=== PATIENT | female | born 1965 | race Caucasian/White ===

== ENCOUNTER 2016-09-25 06:32 | Day surgery (SDC) | payer OTHER ==
[~2016-09-25 06:32] MED LIST: CEFAZOLIN 1 GM/D5W RTU 1 GM/50 ML RTUPB IV PRN
[2016-09-25] MEDS ORDERED: FENTANYL CITRATE INJ/PF 100 MCG/2 ML AMPUL ONE (06:58)
[2016-09-25] MEDS ORDERED: MIDAZOLAM 2 MG/2 ML INJ ONE (06:58)
[2016-09-25] MEDS ORDERED: LIDOCAINE 2% INJ-PF (20 MG/ML) 10 ML AMPUL ONE (06:59)
[2016-09-25] MEDS ORDERED: PROPOFOL INJ 200 MG/20 ML VIAL IV ONE ×2 (06:59→08:32)
[2016-09-25] MEDS ORDERED: POLYMYXIN B SULFATE INJ 500000 UNIT VIAL ONE (07:15)
[2016-09-25] MEDS ORDERED: BACITRACIN INJ 50,000 UNIT VIAL ONE (07:15)
[2016-09-25] MEDS ORDERED: NORMAL SALINE INJ/PF 0.9% 10 ML SDV ONE (07:15)
[2016-09-25] MEDS: BUPIVACAINE HCL 0.5 % INJ/PF 30 ML SDV ONE ×2 (07:48→08:19)
[2016-09-25] MEDS: LIDOCAINE 2% INJ (20 MG/ML) 20 ML MDV ONE ×2 (07:48→08:19)
[2016-09-25] MEDS ORDERED: BUPIVACAINE INJ/PF LIPOSOME/PF 266 MG/20 ML SDV INJ PRN (08:00)
[2016-09-25] MEDS ORDERED: KETAMINE HCL INJ 500 MG/10 ML VIAL ONE (08:09)
--- NOTE | 2016-09-25 10:11 | SURGICARE DISCHARGE SUMMARY E ---
[facility] Discharge Summary NAME: MARC AGUILA AGE: 51Y ADMITTED: 09/25/2016 DISCHARGED: 09/25/2016 SURGICAL PROCEDURE: Correction of bunion via Compa osteotomy with internal screw fixation, left foot. POSTOPERATIVE DIAGNOSIS: Hallux abductovalgus, left foot. SURGEON: Yanet Mckenna DPM NEUROLOGY PHYSICIAN ASSISTANT: Curtis Soto DPM HOSPITAL COURSE: The patient was admitted to [facility] with chief complaint of a painful bunion on her left foot. She stated that she has had it for a number of years and the pain was worsening whether she was in or out of shoes. She desired to have this problem surgically corrected. She underwent the above surgical procedure without any complications and was transferred to the recovery room. She was discharged with a surgical shoe, an ice pack, postoperative instructions, and postoperative prescriptions for Dilaudid 8 mg #48, Phenergan 25 mg #24, and cephalexin 500 mg #4. She was given a follow-up appointment in the doctor's office in 1 week, and the patient was discharged from [facility]. DICTATING PHYSICIAN: YANET MCKENNA D.P.M. [id number] PHY#: [id number] ID: [id number] JOB#: [id number] ACCT: [id number] cc:YANET MCKENNA DPM >
--- NOTE | 2016-09-25 10:29 | RADIOLOGY REPORT (SQ) ---
EXAM DESCRIPTION: FOOT LEFT 2 VIEWS; NO CHG FLUORO COMPLETED DATE/TIME: 09/25/2016 9:55 am REASON FOR STUDY: JENNA BUNIONECTOMY M20.12 HALLUX VALGUS (ACQUIRED), LEFT FOOT COMPARISON: None. FLUOROSCOPY TIME: 10 seconds 4 digital fluoroscopic images saved to PACS. TECHNIQUE: Intra-operative images acquired during surgical procedure to evaluate progress. NUMBER OF IMAGES: 4 digital fluoroscopic images LIMITATIONS: None. FINDINGS: Intra procedural imaging and fluoro during left foot bunion corrective surgery with osteot aleksander and screw placement. Please see the operative report for further details IMPRESSION: Intra procedural imaging and fluoro COMMENT: Quality ID [id number]: Final reports for procedures using fluoroscopy that document radiation exp osure indices, or exposure time and number of fluorographic images (if radiation exposure indices are not available) Please consult full operative report of the attending physician for description of the procedure. TECHNICAL DOCUMENTATION: JOB ID: [id number] [employer]- All Rights Reserved
--- NOTE | 2016-09-25 10:39 | SURGICARE OPERATIVE REPORT E ---
[facility] Operative Report NAME: MARC AGUILA AGE: 51Y DATE OF SURGERY: 09/25/2016 ROOM: PREOPERATIVE DIAGNOSIS: Hallux abductovalgus, left foot. POSTOPERATIVE DIAGNOSIS: Hallux abductovalgus, left foot. SURGICAL PROCEDURE: Correction of bunion via osteotomy with internal screw fixation, left foot. SURGEON: CARLOS ALBERTO KNOTT DPM [employer] SUPERVISOR: TERESA BARNETT DPM DESCRIPTION OF PROCEDURE: Following induction of IV regional local anesthesia, the left foot and leg were prepped and draped in the usual sterile manner. A pneumatic tourniquet was placed around the left ankle and inflated to 250 mmHg after exsanguination of the limb via Esmarch bandage. The following surgical procedure was then performed: Correction of bunion via osteotomy with internal screw fixation left foot. Attention was directed to the dorsal aspect of the first metatarsophalangeal joint where an approximately 5 cm dorsal linear incision was made. The incision was deep and via sharp dissection. All bleeders were clamped and bovied as necessary for the purposes of hemostasis. A capsular incision was made in the same manner as the original skin incision and was medial to the extensor hallucis longus tendon. The capsule was then reflected medially and laterally from the bone. Attention was directed to the first interspace where utilizing a combination of blunt dissection the transverse adductor tendon was identified and isolated and sharply incised with a scalpel. Attention was directed to the dorsal aspect of the first metatarsophalangeal joint where utilizing a rongeur the exostosis of the dorsal aspect of the first metatarsal head was removed. Attention was then directed to the medial aspect of the first metatarsal head utilizing a Waverly sagittal saw. The hypertrophied medial eminence was osteotomized parallel to the long axis of the bone and removed en toto from the wound. An Compa type osteotomy was then performed to the medial aspect of the first metatarsal head utilizing a Jann sagittal saw. The apex was distal and the wings were both dorsal and plantar proximal. These were through and through cuts made at approximately a 60 degree angle. The capital fragment was then distracted and shifted laterally on the metatarsal by approximately 5 mm. The osteotomy was then temporarily fixated utilizing a 0.45 guidewire. An x-ray was taken to make sure that the guidewire was in correct position. The reamer measure was then threaded down the guidewire and the hole was reamed to accept the head of the screw and it was noted that a 22 mm 3.0 cancellous screw would be needed. The distal aspect of the osteotomy was then overdrilled utilizing a 2.0 mm cannulated drill bit. The 22 mL 3.0 cannulated screw was then threaded down the guidewire and tightened down until the osteotomy was stably fixated. An x-ray was taken. It was noted that the screw was in good position, the threads were coming out at the plantar cortex, and that the first metatarsophalangeal joint was now in a more anatomically correct position. Attention was then directed to the medial aspect of the first metatarsal, and utilizing a Field Squared sagittal saw, the redundant bone on the medial aspect of the first metatarsal was osteotomized parallel to the long axis of the bone and removed in toto from the wound. The area was then rasped smooth utilizing a Field Squared crosscut rasp. The area was then flushed with copious amounts of an antibacterial saline solution until no bony debris was noted in the wound. The capsule was then coapted and maintained utilizing simple interrupted sutures of 3-0 Vicryl. The extensor hallucis longus tendon was then tacked medially utilizing simple interrupted sutures of 3-0 Vicryl. Total of 10 mg of Exparel was then used to anesthetize the surgical site. The subcutaneous tissue was then coapted and maintained utilizing simple interrupted sutures of 4-0 Vicryl. The skin was coapted and maintained utilizing horizontal mattress sutures of 5-0 nylon. X-rays were again taken and it was noted that the first metatarsophalangeal joint was in an anatomically correct position, the osteotomy was closed down upon itself, and the screw was in good position. The foot was then cleansed utilizing alcohol foam. A dry sterile dressing was then applied consisting of Gregory silk, 4 x 4s, Conform, Kerlix, and Coban. The pneumatic tourniquet was released. It was noted that all digits were warm and viable, and patient was transferred to the recovery room. DICTATING PHYSICIAN: CARLOS ALBERTO KNOTT D.P.M. [id number] PHY#: [id number] ID: [id number] JOB#: [id number] ACCT: [id number] cc:CARLOS ALBERTO KNOTT DPM >
== END 2016-09-25 10:26 | disposition home or self-care (01) ==
LOC: SC 06:32
PROVIDERS: ATTEND Podiatrist Foot Surgery
PROC: 0QBP0ZZ Excision of Left Metatarsal, Open Approach (ICD-10-PCS; principal; 2016-09-25 07:30)
DX: M20.12 Hallux valgus (acquired), left foot (principal); Z87.891 Personal history of nicotine dependence; Z79.899 Other long term (current) drug therapy
CPT/HCPCS: 28296; 73620; C1713; C1769; J2250; J3490 ×6; J0690; J3010; J2704; C9290; 01480